=== PATIENT | male | born 1965 | race Caucasian/White ===

== ENCOUNTER 2023-07-02 15:41 | Outpatient (CLI) | payer OTHER ==
--- NOTE | 2023-07-02 16:25 | Sleep Patient Instructions ---
Sleep Center Visit Summary - Patient Visit Information Reason for Visit: Initial consult for evaluation of sleep disordered breathing and other sleep issues. - Patient Instructions Instructions Attached: Sleep Study, Sleep Study Home Monitor Additional Instructions: You will be completing a sleep study, either an in-lab polysomnography (PSG) or home sleep study (HST). You will follow-up in the sleep care office after the sleep study is completed to hear the results and talk about therapy, if needed. You will be called by our office staff to schedule this appointment, but you may contact us with any questions. - Clinic Information Contact: [facility] [address] [place] [id number] [email or web address] T: [phone]
--- NOTE | 2023-07-02 16:31 | SLEEP CARE CONSULTATION ---
Information from patient questionnaire entered by Gely Castle. I have reviewed and concur with the information entered by Gely Castle. This document represents the service I personally performed and the decisions made by me, Latoya Guy ARNP. History of Present Illness Service Date and Time: 07/02/2023 1541 Reason for Visit: New patient Chief Complaint: reports: Other (Doctor said to go) Date of Onset: 1992 Usual bedtime: 7:30 PM Time it takes to fall asleep: Not long Snores at night: Yes Observed to quit breathing while asleep: No Sleeps alone due to snoring: No Number of times waking at night: 1 to 2 Reasons for waking at night: reports: Snoring, Bathroom. denies: Choking, Gasping for air Toss, Turn, or Twitch while sleeping: Yes Recalls having dreams: Yes (he does not remember them but knows he has them) Usually gets out of bed at: 3 AM to 4 AM Feels refreshed in the morning: No Morning headache: No Sleepy or fatigued during the day: Yes Ever fallen asleep while driving: No Takes day naps: No Dreams during day naps: No Prior sleep studies: No Additional HPI information: I had the pleasure of seeing RUFUS OLIVAREZ today regarding the possibility of him having a sleep disorder. His current complaints are snoring, unrefreshed sleep and daytime fatigue. His doctor recommended he come here because his blood pressure has been up more lately. He says he is supposed to take medications for hypertension but he tries not to take it. He does not like taking medication that could cause problems with his liver. He says he does snore, according to his grandson. He does not wake up feeling refreshed and is tired during the day. He does not take naps. 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 Patient is and lives in [place]. Have you smoked in the past 12 months: Yes Cigarettes per day (20/pack): 30 Years of smokin Quit date: Vape on occasion Smoking Pack Years: 52.5 Alcohol use: Yes Alcohol amount and frequency: Depends. 2 times a year. Caffeine use: Yes Caffeine amount and frequency: 2 cans daily Family History Family history of sleep disordered breathing: Yes Family Hx Sleep Apnea: Other: Snoring Allergies and Home Medications Known drug allergies: No Drug allergies reviewed: Yes Home medication list reviewed: Yes (as listed) Allergy and home medication list: Allergies No Known Drug Allergies Allergy (Verified 07/02/23 16:19) Home Medications D3-5000 See Rx Instructions .ROUTE .COMPLEX 07/02/23 [History] Lisinopril See Rx Instructions .ROUTE .COMPLEX 07/02/23 [History] Review of Systems Weight gain over past 5 years: 20 Cardiovascular: reports: high blood pressure Respiratory: reports: shortness of breath Gastrointestinal: denies: heartburn Neurological: denies: headaches Psychiatric: denies: anxiety, depression Ear/Nose/Throat: denies: tonsillectomy Musculoskeletal: reports: joint pain (/stiffness), neck pain, back pain Immunologic: reports: sneezing (/runny nose) Physical Exam Vital signs obtained and entered by: Latoya Jang NP Blood Pressure: 143/100 Cuff size: long (right arm) Heart Rate: 62 O2 Saturation: 98 Height: 5 ft 10 in Weight: 287 lb 9.6 oz Body Mass Index: 41.2 BMI Classification: Morbidly Obese Neck circumference: 19.5 Nostrils: patent to airflow Mouth and throat: narrow oropharynx Soft palate: long Hard palate: normal Uvula visualization: 25% Mallampati Class III Tongue: enlarged in size with teeth connell on lateral edges Tonsils: small Neck: normal w/o lymphadenopathy or thyromegaly Heart: regular rate and rhythm Lungs: clear bilaterally Impression and Plan 1. Suspected Obstructive Sleep Apnea-Hypopnea Syndrome, as suggested by a history of loud and irregular snoring, unrefreshed sleep, cognitive impairment, and excessive daytime sleepiness. Narrow oropharynx and obesity are common predisposing factors for obstructive sleep apnea-hypopnea syndrome. I recommend proceeding to polysomnography to confirm the diagnosis and to assess severity. If the patient has significant sleep disordered breathing, a manual CPAP titration study will also be performed to find the optimal treatment pressure. I informed the patient of what the sleep studies involve and after some discussion, obtained agreement to proceed. The pathophysiology of obstructive sleep apnea-hypopnea syndrome was discussed with the patient and health risks of cardiovascular and cerebrovascular disease if not treated. Risks of drowsy driving discussed in detail and patient advised to avoid long distance driving and to press puller at the first sign of drowsiness. Patient agreed to plan. * Schedule polysomnography * Avoid long distance driving or driving when feeling sleepy. * Avoid alcohol, sedative and muscle relaxant around bedtime. * Attempt to lose weight. * Review instructions provided by trained office staff on how to prepare for the sleep study. * Return for follow-up after sleep study completed. Counseling Topics: Weight loss health impact Plan: PSG and follow up Visit Type: In Office Time Spent with Patient (minutes): 31 Provider Statement: I spent 100% of the Face to Face Visit with the patient with greater than 50% spent counseling the patient and coordination of care.
[2023-07-02 16:48] VITALS: BP 143/100; O2SAT 98
== END 2023-07-02 15:42 | disposition home or self-care (01) ==
LOC: SC 15:41
PROVIDERS: ATTEND Nurse Practitioner Family
DX: G47.10 Hypersomnia, unspecified (principal); R53.83 Other fatigue; R06.83 Snoring; G47.8 Other sleep disorders; I10 Essential (primary) hypertension; E66.01 Morbid (severe) obesity due to excess calories; Z68.41 Body mass index [BMI] 40.0-44.9, adult; F17.210 Nicotine dependence, cigarettes, uncomplicated
CPT/HCPCS: 99203; 99212

== ENCOUNTER 2023-08-12 12:21 | Outpatient (CLI) | payer OTHER | END 2023-08-12 12:22 | disposition home or self-care (01) | LOC: SC 12:21 | PROVIDERS: ATTEND Nurse Practitioner Family | DX: G47.33 Obstructive sleep apnea (adult) (pediatric) (principal); R09.02 Hypoxemia; E66.01 Morbid (severe) obesity due to excess calories; Z68.41 Body mass index [BMI] 40.0-44.9, adult | CPT/HCPCS: 95806 ==

== ENCOUNTER 2023-09-13 09:43 | Outpatient (CLI) | payer OTHER ==
--- NOTE | 2023-09-13 10:20 | Sleep Patient Instructions ---
Sleep Center Visit Summary - Patient Visit Information Reason for Visit: Sleep study followup - Patient Instructions Instructions Attached: CPAP Additional Instructions: You are being started on CPAP therapy with pressure setting at 4-15 cmH2O. You will need to call the sleep care office to set up your follow up once you have your CPAP machine to check compliance and response to therapy at that time. You may call the office with any concerns about pressure feeling too low or too much for adjustment, if needed. You should contact DME supplier for any questions or concerns about mask or equipment. Please call office to schedule a follow up appointment in the sleep care office one month after obtaining new device. - Clinic Information Contact: [facility] [address] [place] [address] [email or web address] T: [phone]
--- NOTE | 2023-09-13 10:21 | SLEEP CARE CONSULTATION ---
Information from patient questionnaire entered by Angela Pulido. I have reviewed and concur with the information entered by Angela Pulido. This document represents the service I personally performed and the decisions made by me, Latoya Guy ARNP. History of Present Illness Service Date and Time: 09/13/2023 0943 Initial [place] Sleepiness Scale score: 12 (in 2023) Current [place] Sleepiness Scale score: 4 (09/13/23) Additional HPI information: RUFUS OLIVAREZ returns for follow up and results of the recently performed home sleep study. The sleep study done on 08/12/23 showed moderate obstructive sleep apnea with an average AHI of 21.2 and tino oxygen saturation of 76%. I explained the pathophysiology behind obstructive sleep apnea. We then spent quite a bit of time discussing different treatment options. For mild obstruc tive sleep apnea, surgery and oral appliance are alternatives to nasal CPAP therapy but in moderate or severe cases, nasal CPAP is the most effective and reliable treatment. Because apnea is primarily in supine position, then positional management therapy could be effective. Methods discussed such as positioning with pillows, using a T-shirt with tennis balls in the back or commercial products that have a pillow format on back to prevent supine sleep. I reviewed the impact of weight changes on sleep apnea and strongly recommended losing weight. After some discussion, the patient opted to go with the nasal CPAP therapy. Nasal autoCPAP set at 4-15 cmH20 will be ordered with rationale explained. A manual titration study will be ordered if unable to find optimal pressure with office adju stments. I explained how CPAP machine works and what to expect when using the machine. Using CPAP every night in order to get used to it was emphasized. Patient advised to put CPAP mask on before getting into bed so as not to fall asleep without CPAP. To assist acclimation to CPAP use, it could also be used for a short time during day while reading or watching TV. The patient was instructed t o call the CPAP supplier to discuss any mechanical problem that may occur. If the mask given is uncomfortable or is difficult to keep on through the night even with adjustment, contact the CPAP supplier as many will replace with another mask style if notified before 30 days. If snoring or perceives is not getting enough air or too much air from the machine, notify this office. Patient does not drink alcohol. Patient was cautioned about risks of drowsy driving until sleepiness symptoms resolve. Patient denies drowsy driving. Sleep Study - Results Type of Sleep Study: Polysomnography (COMPLETED 08/12/23) Prior sleep studies: No Polysomnography/Home Sleep Study results: Physician Impression: The quality of the study is good. The length of the study is adequate (> 240 minutes). Please also see the tabulated and graphic data. 1. Obstructive Sleep Apnea-Hypopnea (ICD-10 G47.33), moderate, with an AHI of 21.2/hr and tino SaO2 of 76%. During the study, the patient had 82 apneas (82 obstructive, 0 central, 0 mixed) and 85 hypopneas. The longest episode lasted 68.5 seconds. The respiratory events occurred more frequently during supine sleep (supine AHI was 37.0 and non-supine, 6.98). 2. Hypoxemia (ICD-10 R09.02), moderate, with the lowest oxygen saturation of 76 % and 23.3 minutes with SaO2 under 90%. Baseline oxygen saturation was normal (Average oxygen saturation was 92%). Allergies and Home Medications Known drug allergies: No Drug allergies reviewed: Yes Home medication list reviewed: Yes (no changes) Allergy and home medication list: Allergies No Known Drug Allergies Allergy (Verified 09/13/23 09:43) Review of Systems Review of systems same as previous: Yes (NO CHANGE) Physical Exam Vital signs obtained and entered by: ANGELA Prado MA Blood Pressure: 156/89 (RIGHT ARM) Cuff size: long Heart Rate: 64 O2 Saturation: 100 Height: 5 ft 10 in Weight: 277 lb 9.6 oz Body Mass Index: 39.8 BMI Classification: Obese Impression and Plan 1. Obstructive Sleep Apnea-Hypopnea Syndrome, moderate, with lowest oxygen saturation of 76%. Obviously this is the cause of the patients symptoms of unrefreshed sleep, and excessive daytime sleepiness. Positive pressure therapy could benefit hypertension. As mentioned above, the patient will be started on nasal autoCPAP therapy with pressure set at 4-15 cmH2O. A manual titration study will be completed if unable to find optimal treatment pressure with office adjustments. Compliance guidelines also reviewed. A copy of compliance guidelines will be given for reference at check out. Because the apnea is more severe supine, I instructed to avoid sleeping supine using pillow positioning until able to start CPAP use. 2. Hypoxemia, moderate, with a tino oxygen saturation of 76% and 23.3 minutes spent under 90%. The baseline oxygen saturation was normal with an average oxygen saturation of 92%. 3. Obesity, unspecified. Currently patients BMI is 39.8. Obesity increases the risk of apnea, CPAP pressure requirements and overall health risks especially cardiovascular and diabetes. Thus patient is advised to lose weight. * Nasal auto CPAP therapy, pressure at 4-15 cm H2O. * Attempt to lose weight. * Avoid alcohol consumption near bedtime. * Avoid supine sleep until using CPAP. * The patient is again cautioned about driving until sleepiness completely resolves. * Return one month after CPAP obtained. I will assess response to therapy and compliance at that time. Counseling Topics: Sleeping position, Weight loss health impact Prescriptions: Auto CPAP Follow up with Sleep Care in: other (compliance visit) Visit Type: In Office Time Spent with Patient (minutes): 20 Provider Statement: I spent 100% of the Face to Face Visit with the patient with greater than 50% spent counseling the patient and coordination of care.
[2023-09-13 10:23] VITALS: BP 156/89; O2SAT 100
== END 2023-09-13 09:44 | disposition home or self-care (01) ==
LOC: SC 09:43
PROVIDERS: ATTEND Nurse Practitioner Family
DX: G47.33 Obstructive sleep apnea (adult) (pediatric) (principal); R09.02 Hypoxemia; E66.9 Obesity, unspecified; Z68.39 Body mass index [BMI] 39.0-39.9, adult
CPT/HCPCS: 99212; 99213